=== PATIENT | female | born 1950 | race Two or more races ===

== ENCOUNTER 2025-02-25 07:45 | Outpatient (CLI) | payer OTHER | END 2025-02-25 07:51 | disposition home or self-care (01) | LOC: NUCLEAR 07:45 | PROVIDERS: ATTEND Obstetrics & Gynecology Gynecologic Oncology | DX: M81.0 Age-related osteoporosis without current pathological fracture (principal) ==

== ENCOUNTER 2025-03-04 08:14 | Outpatient (CLI) | payer OTHER | END 2025-03-04 08:15 | disposition home or self-care (01) | LOC: NUCLEAR 08:14 | PROVIDERS: ATTEND Obstetrics & Gynecology Gynecologic Oncology | DX: C54.1 Malignant neoplasm of endometrium (principal) | CPT/HCPCS: 78815; A9552 ==

== ENCOUNTER 2025-03-11 07:08 | Outpatient (CLI) | payer OTHER | END 2025-03-11 07:10 | disposition home or self-care (01) | LOC: NUCLEAR 07:08 | DX: Z01.810 Encounter for preprocedural cardiovascular examination (principal) | CPT/HCPCS: 78452; 93017; A9500 ==